=== PATIENT | female | born 1985 ===

== ENCOUNTER 2019-02-21 19:34 | Emergency (ER) | payer MEDICAID ==
[2019-02-21 19:41] VITALS: BMI 25.8
--- NOTE | 2019-02-21 21:00 | ED PDOC ---
Arrival/HPI - General Chief Complaint: Psychiatric Evaluation Time Seen by Provider: 02/21/19 19:47 Historian: Patient - History of Present Illness Narrative History of Present Illness (Text): 02/21/19 20:56 33-year-old female presents to the emergency room for alcohol intoxication, was brought in by a [place] police department. Otherwise the patient is yelling at staff, she is verbally abusive. She reports no trauma, injury, headache, vomiting, chest pain, abdominal pain, feeling depressed, SI, HI. She has no other complaints. Past Medical History - Infectious Disease Hx of Infectious Diseases: None - Tetanus Immunization Tetanus Immunization: Unknown - Past Medical History Past Medical History: Non-Contributing - Cardiac Hx Hypertension: No - Pulmonary Hx Tuberculosis: No - Neurological Hx Seizures: No - HEENT Hx HEENT Disorder: No - Renal Hx Renal Disorder: No - Endocrine/Metabolic Hx Endocrine Disorders: No - Hematological/Oncological Hx Cancer: No - Integumentary Hx Dermatological Disorder: No - Musculoskeletal/Rheumatological Hx Falls: No - Gastrointestinal Hx Gastrointestinal Disorders: No - Genitourinary/Gynecological Hx Sexually Transmitted Diseases: No - Psychiatric Hx Anxiety: Yes Hx Depression: Yes Hx Schizophrenia: Yes (Chronic, undifferntiated) Hx Substance Use: No - Past Surgical History Past Surgical History: Non-Contributing - Anesthesia Hx Anesthesia: No - Suicidal Assessment Feels Threatened In Home Enviroment: No Family/Social History Family/Social History: No Known Family HX Smoking Status: Former Smoker Hx Alcohol Use: No Hx Substance Use: No Allergies/Home Meds Allergies/Adverse Reactions: Allergies No Known Allergies Allergy (Verified 02/21/19 19:42) Review of Systems - Review of Systems Constitutional: absent: Fatigue, Fevers Respiratory: absent: SOB, Cough Cardiovascular: absent: Chest Pain, Palpitations Gastrointestinal: absent: Abdominal Pain, Nausea, Vomiting Neurological: absent: Headache, Dizziness Physical Exam Appearance: Positive for: Well-Appearing, Non-Toxic, Other (Patient is yelling and clapping. ) Pain Distress: None Mental Status: Positive for: Alert and Oriented X 3 - Systems Exam Head: Present: Atraumatic, Normocephalic Pupils: Present: PERRL Extroacular Muscles: Present: EOMI Conjunctiva: Present: Normal Mouth: Present: Moist Mucous Membranes Neck: Present: Normal Range of Motion Respiratory/Chest: Present: Clear to Auscultation, Good Air Exchange. No: Respiratory Distress, Accessory Muscle Use Cardiovascular: Present: Regular Rate and Rhythm, Normal S1, S2. No: Murmurs Abdomen: No: Tenderness, Distention, Peritoneal Signs Back: Present: Normal Inspection Upper Extremity: Present: Normal Inspection. No: Cyanosis, Edema Lower Extremity: Present: Normal Inspection. No: Edema Neurological: Present: GCS=15, CN II-XII Intact, Speech Normal Skin: Present: Warm, Dry, Normal Color. No: Rashes Psychiatric: Present: Alert, Oriented x 3, Normal Insight, Normal Concentration Medical Decision Making ED Course and Treatment: 02/21/19 20:59 Will observe the patient in the ER until she is sober. CUST[employer]ER SALES SPECIALIST was able to speak to patient's boyfriend who is on his way to the ER to pick her up and take her home. 02/21/19 21:20 Patient keeps stepping out of her room, she is screaming at the staff, is aggressive, refuses to calm down, multiple attempts made to deescalate the patient, however she continues to yell, be verbally abusive and threatens to leave the ER. Patient given ativan 2 mg IM. 02/21/19 21:33 Patient's boyfriend arrived to the ER, Earle Rodriguez, he states that he can take the patient home and she will be staying with him tonight. He was advised to monitor and observe the patient as she had to be given ativan to calm her down due to her aggressive behaviour and her refusal to cooperate with the ER staff. He verbalize understanding of information and instructions for care at home. Patient still awake, alert, she is calm and cooperative at this time. She is ambulatory with a steady gait. - PA / REFRIGERATOR [employer]INET[employer]KER / Resident Statement MD/DO has reviewed & agrees with the documentation as recorded. Disposition/Present on Arrival - Present on Arrival Any Indicators Present on Arrival: No History of DVT/PE: No History of Uncontrolled Diabetes: No Urinary Catheter: No History of Decub. Ulcer: No History Surgical Site Infection Following: None - Disposition Have Diagnosis and Disposition been Completed?: Yes Diagnosis: Alcohol intoxication Disposition: HOME/ ROUTINE Disposition Time: 21:30 Patient Plan: Discharge Patient Problems: Current Active Problems Problem Status Onset Alcohol intoxication Acute Condition: STABLE Discharge Instructions (ExitCare): Alcohol Use - When Is Drinking a Problem? Forms: [facility] (Indian)
[2019-02-21 21:43] VITALS: BP 131/72; PULSE 113; RESP 15; O2SAT 97
== END 2019-02-21 21:35 | disposition home or self-care (01) ==
LOC: ED 19:34
DX: F10.129 Alcohol abuse with intoxication, unspecified (principal); Z87.891 Personal history of nicotine dependence
CPT/HCPCS: 96372; 99283; J2060